=== PATIENT | male | born 1960 | race Caucasian/White ===

== ENCOUNTER → 2016-07-21 | Outpatient (CLI) | payer OTHER | LOC: KOH-I 07-19 10:30 | DX: R10.9 Unspecified abdominal pain (principal); K21.9 Gastro-esophageal reflux disease without esophagitis; J44.9 Chronic obstructive pulmonary disease, unspecified; I73.9 Peripheral vascular disease, unspecified; R00.2 Palpitations; K29.50 Unspecified chronic gastritis without bleeding | CPT/HCPCS: 76705 ==

== ENCOUNTER 2017-02-04 16:25 | Emergency (ER) | payer OTHER | END 2017-02-04 20:05 | disposition left against medical advice (07) | LOC: ER1 16:25 | DX: Z53.21 Procedure and treatment not carried out due to patient leaving prior to being seen by health care provider (principal) ==